=== PATIENT | male | born 1940 | race Caucasian/White ===

== ENCOUNTER → 2018-10-20 | Outpatient (REF) | payer MEDICARE ==
[~2018-10-20] VITALS: Ht 180.3 cm; Wt 93.4 kg
[~2018-10-20] MED LIST: ALDOMET250 MG PO; AMLODIPINE5 MG PO; FENOFIBRATE54 MG PO; FISH OIL1200 MG PO; OMEGA 3 PO; RED YEAST RICE600 MG PO; TENORMIN PO
[2018-10-20 14:33] VITALS: BP 132/74
== END | disposition home or self-care (01) ==
LOC: ORM 10:45 → PO 10:47
PROVIDERS: ATTEND Surgery
DX: Z01.818 Encounter for other preprocedural examination (principal); R19.5 Other fecal abnormalities; I10 Essential (primary) hypertension; Z98.890 Other specified postprocedural states; Z97.2 Presence of dental prosthetic device (complete) (partial)

== ENCOUNTER 2018-11-11 06:18 | Day surgery (SDC) | payer MEDICARE ==
[~2018-11-11] VITALS: Ht 180.3 cm; Wt 93.0 kg
[2018-11-11 09:37] VITALS: BP 133/74
== END 2018-11-11 09:09 | disposition home or self-care (01) ==
LOC: ENDO 06:18 → ORM 07:45 → ENDO 07:45
PROVIDERS: ATTEND Surgery
PROC: 0DJD8ZZ Inspection of Lower Intestinal Tract, Via Natural or Artificial Opening Endoscopic (ICD-10-PCS; principal; 2018-11-11)
DX: R19.5 Other fecal abnormalities (principal); K57.30 Diverticulosis of large intestine without perforation or abscess without bleeding; I10 Essential (primary) hypertension

== ENCOUNTER 2022-10-18 11:43 | Emergency (ER) | payer MEDICARE ==
[~2022-10-18] VITALS: Ht 180.3 cm; Wt 82.6 kg
[2022-10-18 12:33] VITALS: BP 118/73
[2022-10-18 13:01] VITALS: BP 151/82
[2022-10-18 14:01] VITALS: BP 148/78
[2022-10-18 15:01] VITALS: BP 136/63
[2022-10-18 15:02] LABS: BASO% 0.2 % (0-3); EOS% 0.1 % (0-8); IMMATURE GRANULOCYTES 0.1 % (0.0-5.0); LYMPH% 9.7 % (15-41); MEAN CELL VOLUME 96.4 fL CALC (80.0-100.0); MEAN CORPUSCULAR HGB 32.3 pG CALC (26.0-32.0); MEAN CORPUSCULAR HGB CONC 33.5 g/dL CAL (32.0-36.0); MONO% 4.2 % (2-13); NEUT# 11.56 thou/uL (1.82-7.42); NEUT% 85.7 % (42-76); RED BLOOD COUNT 5.05 mill/uL (4.70-6.10); RED CELL DISTRI WIDTH 13.5 % (11.5-15.5); URINE BILIRUBIN - DIPSTICK NEGATIVE (NEGATIVE); URINE BLOOD DIPSTICK TRACE-INTACT (NEGATIVE); URINE COLOR YELLOW; URINE GLUCOSE - DIPSTICK NEGATIVE (NEGATIVE); URINE KETONE NEGATIVE (NEGATIVE); URINE LEUK ESTERASE NEGATIVE (NEGATIVE); URINE PROTEIN - DIPSTICK NEGATIVE (NEG-TRACE); URINE SPECIFIC GRAVITY 1.015; URINE UROBILINOGEN - DIPSTICK 0.2 E.U./dL (0.2)
[2022-10-18 15:03] LABS: URINE NITRITE - DIPSTICK NEGATIVE (Negative)
[2022-10-18 15:04] LABS: HEMATOCRIT 48.7 % (39.0-50.0); HEMOGLOBIN 16.3 g/dl (14.0-18.0)
[2022-10-18 15:12] LABS: ALKALINE PHOSPHATASE 104 u/l (38-126); ANION GAP 14 (6-22 (CALC)); BUN 14 mg/dL (8-23); BUN/CREATININE RATIO 11 (12-20 (CALC)); CARBON DIOXIDE 26 mmol/l (22-30); CHLORIDE 104 mmol/l (95-108); CREATININE 1.2 mg/dL (0.7-1.3); GFR FOR AFR.AMER. > 60 ML/MIN (>=60 (CALC)); GFR OTHER RACES 58 ML/MIN (>=60 (CALC)); LIPASE 75 u/l (23-300); POTASSIUM 4.3 mmol/l (3.5-5.1); SGOT/AST 31 u/l (19-48); SODIUM 140 mmol/l (137-146); TOTAL PROTEIN 7.9 g/dL (6.3-8.2)
[2022-10-18 15:14] LABS: ALBUMIN 4.7 g/dL (3.2-5.0); BILIRUBIN, TOTAL 0.6 mg/dL (0.2-1.3)
[2022-10-18] MEDS ORDERED: ONDANSETRON4 MG PO (16:38)
[2022-10-18] MEDS ORDERED: METRONIDAZOLE500 MG PO (16:38)
[2022-10-18] MEDS ORDERED: CIPROFLOXACN500 MG PO (16:38)
[2022-10-18 16:50] VITALS: BP 136/63
== END 2022-10-18 17:02 | disposition home or self-care (01) ==
LOC: ED 11:43
PROVIDERS: Nurse Practitioner
DX: K57.32 Diverticulitis of large intestine without perforation or abscess without bleeding (principal); I10 Essential (primary) hypertension
CPT/HCPCS: Q9967